=== PATIENT | male | born 1970 | race Caucasian/White ===

== ENCOUNTER 2023-05-01 18:43 | Emergency (ER) | payer OTHER, SELFPAY ==
[2023-05-01 19:05] VITALS: BP 175/104; PULSE 87; RESP 16; TEMP 37.1; O2SAT 100
[2023-05-01] MEDS: cefTRIAXone 500 MG, LIDOCAINE HCL 1% LOCAL INJ 1 ML IM (19:37)
--- NOTE | 2023-05-01 19:49 | ED.GENADULT ---
HPI - General Adult General Chief complaint: Urogenital-Male Stated complaint: STI exposure Source: patient Mode of arrival: ambulatory Limitations: no limitations History of Present Illness HPI narrative: Patient presents for evaluation of concern for sexually transmitted infection. He had a sexual encounter with a known and established female sex partner a few weeks ago. He started developed some urethral irritation and noted some tenderness and both testicles as of today. He denies any urethral discharge. Denies any fever, chills, nausea, vomiting, other urinary symptoms, sore throat. No recent oral intercourse. Related Data Home Medications Medication Instructions Recorded Confirmed amlodipine 5 mg tablet 5 mg PO DAILY 05/01/23 05/01/23 hydrochlorothiazide 25 mg tablet 25 mg PO DAILY 05/01/23 05/01/23 lisinopril 40 mg tablet 40 mg PO DAILY 05/01/23 05/01/23 omeprazole 20 mg capsule,delayed 20 mg PO DAILY 05/01/23 05/01/23 release rosuvastatin 10 mg tablet 10 mg PO DAILY 05/01/23 05/01/23 testosterone cypionate 200 mg/mL 400 mg IM MONTHLY 05/01/23 05/01/23 intramuscular oil Allergies Allergy/AdvReac Type Severity Reaction Status Date / Time No Known Allergies Allergy Verified 05/01/23 19:07 Review of Systems Review of Systems: CONSTITUTIONAL: Denies fever, chills, or sweats. EYES: Denies visual changes, redness, or discharge. ENT: Denies rhinorrhea, congestion, sore throat, or otalgia. CARDIOVASCULAR: Denies chest pain, palpitations, or edema. RESPIRATORY: Denies cough or dyspnea. GASTROINTESTINAL: Denies abdominal pain, nausea, vomiting, or diarrhea. GENITOURINARY: reports irritation in the urethra. Denies specific urinary symptoms otherwise. Reports bilateral testicular tenderness. SKIN: Denies rash or itching. MUSCULOSKELETAL: Denies back pain, joint pain, or myalgia. NEUROLOGIC: Denies headache, numbness, dizziness, or weakness. PSYCHIATRIC: Denies anxiety or depression. ON LICENSE OF [facility] Past Medical History Medical History Hyperlipidemia Hypertension Surgical History Surgical History No pertinent past surgical history Family History Family History Mother Family history non-contributory Social History Social History Living arrangements: with family Gender identity (if verbalized by the patient): Male Sexual Orientation (if Verbalized by the Patient): Straight or Heterosexual Spiritual care concerns: No Exam Narrative: GENERAL: Well-appearing, well-nourished, and in no acute distress. HEAD: Normocephalic, atraumatic. EYES: PERRLA and EOMI. ENT: Nares clear, no rhinorrhea or epistaxis. Mucous membranes moist. Oropharynx without tonsillar hypertrophy exudate or other lesions. Bilateral TMs pearly [place] nonbulging NECK: Supple. No adenopathy or masses. No carotid bruits or JVD CHEST: Clear to auscultation. No respiratory distress. No wheezes rales or rhonchi HEART: Regular rate and rhythm. No murmur heard. Normal peripheral pulses. ABDOMEN: Soft, nontender, nondistended, normal active bowel sounds. GENITAL: patient declined examination EXTREMITIES: Normal range of motion. No edema. SKIN: Warm, dry, no rash. NEURO: No focal deficits. Alert and oriented x3. PSYCH: Normal mood and affect. Course Course Emergency Course: this is a 53-year-old male who presented for evaluation of urethral irritation bilateral testicular tenderness. Through shared decision making opted to proceed with treatment for gonorrhea and chlamydia. He would like to hold off on treatment for Trichomonas as he has a history of C diff and is concerned that antibiotics may cause that. Will remain sexually abstinent. Follow-up with primary provider. Go to the ER fo
[2023-05-02 21:02] LABS: Chlamydia trachomatis DETECTED (NOT DETECTE); Neisseria gonorrhoeae PCR NOT DETECTED (NOT DETECTE)
[2023-05-02 21:13] LABS: Trichomonas Vag PCR NOT DETECTED (NOT DETECTE)
== END 2023-05-01 19:50 | disposition home or self-care (01) ==
PROVIDERS: Emergency Provider Nurse Practitioner; PCP Nurse Practitioner
DX: Z20.2 Contact with and (suspected) exposure to infections with a predominantly sexual mode of transmission (principal); E78.5 Hyperlipidemia, unspecified; I10 Essential (primary) hypertension
CPT/HCPCS: 81003; 87491; 87591; 87661; 96372; 99213; G0463; J0696